=== PATIENT | female | born 1975 | race Caucasian/White ===

== ENCOUNTER 2017-08-19 08:52 | Emergency (ER) | payer OTHER ==
[~2017-08-19] VITALS: Ht 162.6 cm; Wt 99.8 kg
[~2017-08-19 08:52] MED LIST: BIRTH CONTROL; CIPROFLOXACIN500 M3 PO; FLAGYL500 MG PO
[2017-08-19] MEDS ORDERED: HYDROCHLOROTH12.5 M1 PO (08:58)
[2017-08-19] MEDS ORDERED: IBUPROFEN 800800 M1 PO (08:58)
[2017-08-19] MEDS ORDERED: TYLENOL EXTRA500 MG PO (08:58)
[2017-08-19] MEDS ORDERED: LIPITOR10 MG PO (08:59)
[2017-08-19 09:17] LABS: ABSOLUTE BASOPHILS 0.1 thou/uL (0.0-0.2); ABSOLUTE EOSINOPHILS 0.1 thou/uL (0.0-0.7); ABSOLUTE NEUTROPHILS 6.8 thou/uL (1.6-8.1); BASOPHILS 0.7 %; HEMATOCRIT 40.6 % (37.0-47.0); LYMPHOCYTES 26.9 %; MCH 30.8 pg (26.0-34.0); MCHC 34.4 g/dL (28.0-37.0); MCV 89.6 fL (80.0-100.0); MONOCYTES 9.2 %; MPV 8.9 fl. (7.2-11.1); NUCLEATED RBCS 0 /100WBC; PLATELET COUNT* 292 thou/uL (150-400); POLYS 62.2 %; RBC 4.53 mil/uL (4.20-5.00)
[2017-08-19 09:22] LABS: ANION GAP 12 mmol/L (7-16); BUN 13 mg/dL (7-18); CALCIUM 8.5 mg/dL (8.5-10.1); CHLORIDE 102 mmol/L (98-107); CO2 24 mmol/L (21-32); CREATININE 0.9 mg/dL (0.6-1.3); GLUCOSE 105 mg/dL (70-99); POTASSIUM 3.6 mmol/L (3.5-5.1); SODIUM 138 mmol/L (136-145)
[2017-08-19 09:25] LABS: APTT 25.9 Seconds (25.0-31.3); PROTIME 10.1 Seconds (9.20-11.50)
[2017-08-19 09:40] LABS: ALBUMIN 3.1 g/dL (3.4-5.0); ALKALINE PHOSPHATASE 84 U/L (46-116); CK-MB MASS < 0.5 ng/mL (<0.5-3.6); LIPASE 120 U/L (73-393); MAGNESIUM 1.7 mg/dL (1.8-2.4); NT-PRO BRAIN NAT PEPTIDE 124 pg/mL (<300); SGOT 13 U/L (15-37); SGPT 16 U/L (30-65); TOTAL BILIRUBIN 0.4 mg/dL (<0.1-1.0); TOTAL PROTEIN 7.3 g/dL (6.4-8.2); TROPONIN-I LEVEL <0.06 ng/mL (<0.06)
[2017-08-19 10:35] VITALS: BP 144/82
--- NOTE | 2017-08-19 11:38 | EKG ---
[place] [address] ELECTROCARDIOGRAM REPORT Name: LUMA PIEDRA Room: [facility]#: [id number] Admission: 08/19/17 Attend Phys: Discharge: 08/19/17 Date of : 71 Report #: [id number] THIS REPORT FOR: //name// [facility] Test Date: 2017-08-19 Test Time: 08:57:57 Pat Name: LUMA PIEDRA Department: Room: Gender: F [employer]: TIAGO : 1975 Requested By: Matias Chaudhari Order Number: [id number] MD: Usman Doran Measurements Intervals [place] Rate: 131 P: 62 AL: 127 QRS: 61 QRSD: 87 T: -20 QT: 314 QTc: 464 Interpretive Statements Sinus tachycardia Borderline repol abnormality, diffuse leads No previous ECG available for comparison Electronically Signed On 08-19-2017 11:38:32 CDT by Usman Doran [email or web address] <ELECTRONICALLY SIGNED> By: Usman Doran MD, [facility] 08/19/17 [id number] Usman Doran MD, FACC /EPI
== END 2017-08-19 10:36 | disposition home or self-care (01) ==
LOC: M.ERS 08:52
PROVIDERS: Family Medicine
DX: R00.2 Palpitations (principal); R42 Dizziness and giddiness; J02.9 Acute pharyngitis, unspecified; Z90.89 Acquired absence of other organs

== ENCOUNTER → 2019-10-14 | Outpatient (CLI) | payer OTHER ==
[~2019-10-14] MED LIST changes: +HYDROCHLOROTH12.5 M1 PO; +IBUPROFEN 800800 M1 PO; +LIPITOR10 MG PO; +TYLENOL EXTRA500 MG PO
== END ==
LOC: M.LAB 08:49
PROVIDERS: ATTEND Internal Medicine Gastroenterology
DX: Z01.812 Encounter for preprocedural laboratory examination (principal); Z11.59 Encounter for screening for other viral diseases; R19.4 Change in bowel habit; K92.1 Melena